=== PATIENT | female | born 1940 | race Caucasian/White ===

== ENCOUNTER 2022-02-26 10:49 | Outpatient (REF) | payer MEDICARE, OTHER, SELFPAY ==
[2022-02-28 06:47] LABS: Immunoglobulin E 43 kU/L (<OR=114)
== END 2022-02-26 10:50 | disposition home or self-care (01) ==
LOC: HO.LAB 10:49
PROVIDERS: PCP Internal Medicine; Visit Provider Otolaryngology
DX: J30.89 Other allergic rhinitis (principal)
CPT/HCPCS: 36415; 82785